=== PATIENT | female | born 1980 | race Caucasian/White ===

== ENCOUNTER 2016-08-15 11:45 | Emergency (ER) | payer BC ==
--- NOTE | ~2016-08-15 | CT2 ---
[facility] A Service of [facility] RADIOLOGY TEXT RESULTS PATIENT: ADA MERA LOCATION: SED : 80 UNIT #: [id number] AGE: [address]: Mack Blanco MD SEX: F ORDER DR: [id number] [place] [id number] E MR#: [id number] Acc #: [id number] NAME: ADA MERA : 1980 SEX: F STUDY DATE/TIME: 08/15/2016 13:36 UNIT: SED ROOM: STUDY DESCRIPTION: CT Abd and Pelv W Cont Attending Physician: Mack Blanco M.D. Referring Physician: Mack Blanco M.D. Ordering Physician: Mack Blanco M.D. Primary Care Physician: [facility] MEDICAL IMAGING REPORT This report is preliminary unless electronic signature is present. EXAM CT abdomen and pelvis with contrast. INDICATION Lower abdominal pain beginning 2 weeks ago with nausea. PROCEDURE Contrast-enhanced CT of the abdomen and pelvis. COMPARISON None. TECHNIQUE This CT exam was performed with one or more of the following radiation dose reduction techniques: automatic exposure control, adjustment of mA and/or kV according to patient size, and iterative reconstruction. FINDINGS Abdomen with contrast, the included lung bases are clear. The liver, spleen, kidneys, adrenal glands, pancreas are unremarkable. Previous cholecystectomy. Appendix is normal. Bowel loops nondilated. There is mild enhancement of the descending sigmoid colon and rectum. No evidence for obstruction or abscess. Pelvis with contrast, 1.7 cm rim-enhancing cyst in the left ovary. No pelvic fluid. No aggressive appearing bone lesion. IMPRESSION Asymmetric enhancement, possibly mild thickening of the descending colon, sigmoid colon and rectum, suspicious for colitis. There is a moderate amount of stool in the remainder of the colon. No evidence for abscess or obstruction. [facility] A Service of [facility] RADIOLOGY TEXT RESULTS PATIENT: ADA MERA LOCATION: SED : 80 UNIT #: [id number] AGE: [address]: Mack Blanco MD SEX: F ORDER DR: 1.7 cm rim-enhancing structure in the left ovaries most in keeping with a benign functional cyst given the patient's age. Dictated by... William Apodaca M.D. THIS IS AN ELECTRONICALLY VERIFIED REPORT William Apodaca M.D. at 08/18/2016 10:12 PM ARCHANA/sharif TD: 08/15/2016 18:23 JOB #: [id number] MEDICAL IMAGING REPORT Page 1 of 1
[2016-08-15] MEDS ORDERED: ECHINACEA PLUS400 MG PO (11:50)
[2016-08-15] MEDS ORDERED: BENZONATATE PO (11:50)
[2016-08-15] MEDS ORDERED: ALBUTEROL2.5 MG/3 M INH (11:50)
[2016-08-15] MEDS ORDERED: MEDROL (11:51)
[2016-08-15] MEDS ORDERED: FLAGYL PO (11:51)
[2016-08-15] MEDS ORDERED: MOTRIN600 M2 PO (11:51)
[2016-08-15] MEDS ORDERED: MACROBID100 M1 PO (11:51)
[2016-08-15] MEDS ORDERED: ZITHROMAX PO (11:52)
[2016-08-15] MEDS ORDERED: EX-LAX15 M1 PO (11:52)
[2016-08-15] MEDS ORDERED: ALBUTEROL17 GM INH (11:53)
[2016-08-15 12:35] LABS: URINE SOURCE CLEAN CATCH
[2016-08-15 12:36] LABS: BASOPHIL# 0.1 X10e3 (0-0.3); BASOPHIL% 0.6 % (0-2.5); EOSINOPHIL% 0.1 % (0.0-7.0); HEMATOCRIT 46.1 % (35.0-45.0); HEMOGLOBIN 15.7 gm/dL (12.0-16.0); LYMPHOCYTE# 2.2 X10e3 (1.0-3.5); MEAN CELL VOLUME 92.3 FL (83-96); MEAN CORPUSCULAR HEMOGLOBIN 31.4 PG (28-34); MEAN PLATELET VOLUME 8.7 FL (6.5-11.5); MONOCYTE# 0.7 X10e3 (0-1.0); MONOCYTE% 7.3 % (3.0-12.0); NEUTROPHIL# 6.9 X10e3 (1.5-7.1); PLATELET COUNT 227 X10e3 (140-420); RED CELL DISTRIBUTION WIDTH 13.3 % (11.0-15.5); WHITE BLOOD COUNT 9.9 X10e3 (4.0-10.5)
[2016-08-15 12:37] LABS: DIFF IND NO
[2016-08-15 12:38] LABS: MICRO INDICATED? NO; URINE APPEARANCE CLEAR; URINE BILIRUBIN NEG (NEG); URINE BLOOD NEG (NEG); URINE COLOR YELLOW; URINE GLUCOSE NEG (NORM); URINE KETONE NEG (NEG); URINE LEUKOCYTE ESTERASE NEG (NEG); URINE NITRATE NEG (NEG); URINE PH 5.5 (5-8); URINE PROTEIN NEG (NEG); URINE SPECIFIC GRAVITY <=1.005 (1.003-1.035); URINE UROBILINOGEN 0.2 MG/DL (NORM)
[2016-08-15 13:09] LABS: ALBUMIN SERUM 5.1 g/dL (3.5-5.0); ALKALINE PHOSPHATASE 48 U/L (32-92); ALT (SGPT) 13 U/L (10-40); AMYLASE 31 U/L (0-46); AST (SGOT) 16 U/L (10-42); BILIRUBIN,TOTAL 0.4 mg/dL (0.2-2.0); BLOOD UREA NITROGEN 12 mg/dL (9-23); BUN/CREATININE RATIO 17.14; CALCIUM SERUM 9.2 mg/dL (8.4-10.2); CARBON DIOXIDE 26 mmol/L (22-31); CHLORIDE 103 mmol/L (100-111); CREATININE SERUM 0.7 mg/dL (0.6-1.4); GLOM FILT RATE Estimated 111.5 mL/min (>60); GLUCOSE FASTING 93 mg/dL (70-110); LIPASE 35 U/L (22-51); POTASSIUM 3.9 mmol/L (3.5-5.1); PROTEIN TOTAL SERUM 8.4 g/dL (6.0-8.3); SODIUM 135 mmol/L (135-145)
[2016-08-15 13:11] LABS: BILIRUBIN, DIRECT <0.1 mg/dL (0.0-0.2); BILIRUBIN,INDIRECT 0.3 mg/dL (0.0-0.9)
== END 2016-08-15 14:49 | disposition home or self-care (01) ==
LOC: SED 11:45
PROVIDERS: Emergency Medicine
DX: K52.9 Noninfective gastroenteritis and colitis, unspecified (principal); J45.909 Unspecified asthma, uncomplicated; Z90.49 Acquired absence of other specified parts of digestive tract; F17.200 Nicotine dependence, unspecified, uncomplicated; Z88.0 Allergy status to penicillin; Z88.8 Allergy status to other drugs, medicaments and biological substances; Z79.899 Other long term (current) drug therapy
CPT/HCPCS: 36415; 74177; 80048; 80076; 81003; 82150; 83690; 84703; 85025; 96361; 96374; 99284; J2270; Q9967